=== PATIENT | male | born 1980 | race Two or more races ===

== ENCOUNTER 2019-04-08 16:43 | Emergency (ER) | payer OTHER ==
--- NOTE | 2019-04-08 18:39 | ER Document Report ---
HPI - HPI Pain Level: 3 Notes: 38-year-old male presents the ED for complaints of right fourth and third finger pain after crashing while at work, noted bruising. Denies any numbness or tingling in fingers or hands bilaterally. No [id number] medications have been tried. States symptoms are progressive. Denies bleeding disorder. Past Medical History - Social History Smoking Status: Unknown if Ever Smoked Family History: Reviewed & Not Pertinent Vertical Provider Document - INFECTION CONTROL TRAVEL OUTSIDE OF THE [place] IN LAST 30 DAYS: No Course - Re-evaluation Re-evalutation: 04/08/19 20:05 38-year-old male Hungarian-speaking presents to the ED with complaints of right third and fourth distal phalanx pain after crush injury while he was at work, noticed some bruising. X-ray does show some right distal phalanx fracture, no open wounds or drainage. Consent by patient given to place right volar splint,. cms intact, sensory motor function intact in bilateral upper extremities prior to splint application fiberglass splint placed without incident. cms intact 20 minutes after splint application. Splint is in good alignment. Bilateral upper extremities with motor and sensory function intact 20 minutes after application. Pt stated that splint felt comfortable. Follow-up with programming specialist within the next 3 to 5 days. After performing a Medical Screening Examination, I estimate there is LOW risk for OPEN FRACTURE, COMPARTMENT SYNDROME, TENDON RUPTURE, ACUTE NEUROVASCULAR INJURY, or RETAINED FOREIGN BODY, thus I consider the discharge disposition reasonable. Also, there is no evidence or peritonitis, sepsis, or toxicity. I have reevaluated this patient multiple times and no significant life threatening changes are noted. The patient and I have discussed the diagnosis and risks, and we agree with discharging home with close follow-up with the understanding that symptoms and presentations can change. We also discussed returning to the Emergency Department immediately if new or worsening symptoms occur. We have discussed the symptoms which are most concerning (e.g., changing or worsening pain, fever, numbness, weakness, cool or painful digits) that necessitate immediate return. - Vital Signs Vital signs: Temp Pulse Resp BP Pulse Ox 98.6 F 73 16 146/88 H 100 04/08/19 16:47 04/08/19 16:47 04/08/19 16:47 04/08/19 16:47 07/09/19 16:47 Discharge - Discharge Clinical Impression: Distal phalanx or phalanges, closed fracture Qualifiers: Encounter type: initial encounter Finger: middle finger Fracture alignment: nondisplaced Laterality: right Qualified Code(s): S62.662A - Nondisplaced fracture of distal phalanx of right middle finger, initial encounter for closed fracture Condition: Stable Disposition: HOME, SELF-CARE Instructions: [place] Taping (fingers) ([facility]), [place] Fracture of the Finger ([facility]), Fractured Finger ([facility]) Additional Instructions: Follow-up with programming specialist within the next 3 to 5 days for reevaluation of distal phalanx fracture. Take [id number] ibuprofen and Tylenol, wear finger splint as directed, if symptoms become worse such as increased swelling, pain, decreased capillary refill return to the emergency department immediately. Compartment Syndrome Cautions You have signs of significant swelling. Occasionally, swelling and internal bleeding becomes trapped within a "compartment" -- a muscle space inside the extremity enclosed by fibrous barber. When this swelling creates enough pressure to interfere with circulation, it's called compartment syndrome. Surgery may even be needed to release the pressure. At this time, you do not have compartment syndrome. But there is a small chance that it could develop. Keep the extremity elevated and apply ice packs as directed. Symptoms of compartment syndrome require immediate medical attention. Return immediately if you develop significantly increased pain, numbness, inability to move fingers or toes, or dramatic paleness of the hand or foot. Return immediately for any new or worsening symptoms. Follow up with primary care provider, call tomorrow to make followup appointment. Prescriptions: Ibuprofen [Ibu] 600 mg PO Q6HP PRN #20 tablet PRN Reason: Forms: Return to Work Referrals: REYES BHATT MD [ACTIVE STAFF] - Follow up in 3-5 days SANDRA ANDRES MD [COMMUNITY BASED STAFF] - Follow up as needed
--- NOTE | 2019-04-08 19:18 | RADIOLOGY REPORT (SQ) ---
EXAM DESCRIPTION: HAND RIGHT 3 VIEWS COMPLETED DATE/TIME: 04/08/2019 7:04 pm REASON FOR STUDY: 3rd/4th finger pain, crush injury COMPARISON: None. EXAM PARAMETERS: NUMBER OF VIEWS: Three views. TECHNIQUE: AP, lateral and oblique radiographic images acquired of the right hand. LIMITATIONS: None. FINDINGS: MINERALIZATION: Normal. BONES: Nondisplaced transverse fracture in the distal aspect of the right 3rd digit distal phalanx. No other fracture identified. No dislocation. No worrisome bone lesions. JOINTS: No effusion. SOFT TISSUES: Mild soft tissue swelling. No radiopaque foreign body. OTHER: No other significant finding. IMPRESSION: Nondisplaced transverse fracture in the distal aspect of the right 3rd digit distal phal anx. No other fracture identified. TECHNICAL DOCUMENTATION: JOB ID: [id number] [id number] 2010 [employer]- All Rights Reserved Reading location - IP/workstation name: [email or web address]
[2019-04-08 20:20] VITALS: BP 139/90
== END 2019-04-08 20:18 | disposition home or self-care (01) ==
LOC: ER 16:43
DX: S62.662A Nondisplaced fracture of distal phalanx of right middle finger, initial encounter for closed fracture (principal); M79.644 Pain in right finger(s); W23.0XXA Caught, crushed, jammed, or pinched between moving objects, initial encounter
CPT/HCPCS: 99283